=== PATIENT | male | born 1930 | race Caucasian/White ===

== ENCOUNTER 2016-06-29 07:33 | Day surgery (SDC) | payer MEDICARE, BC ==
--- NOTE | ~2016-06-29 | OP ---
Record Of Operation [facility] [address] [place]. 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 PROCEDURE PERFORMED: 1. Wide local excision of right neck squamous cell carcinoma. 2. Complex layered closure of 8 cm x 4 cm defect. SURGEON: Linda Mathias M.D. [employer] SERVICE CAPTAIN: Víctor Polanco M.D. ANESTHESIA: General. COMPLICATIONS: None. CONDITION: Stable to recovery. INDICATIONS: An 86-year-old male with squamous cell carcinoma of the right neck with perineural spread noted, 3.1 mm depth of invasion, poor differentiation. The risks, benefits, and alternatives to wide excision with complex closure were explained and he agreed. PROCEDURE IN DETAIL: The patient was identified in preoperative holding, taken back to the operating room, and placed supine on the operating room table. General anesthesia was established. A time-out was called. The patient and procedure were confirmed. The biopsy site of the right neck still had three sutures in it. A 1 cm to 1.5 cm margin was marked around this with a surgical ink pen and infiltrated subcutaneously with 1% lidocaine with 1:100,000 epinephrine. Using a needle tip cautery on 15 CUT 25 COAG, lesion was excised down through the platysma as the deep margin. The specimen was tagged at 12 o'clock and sent for frozen section analysis. Margins were clear. A Burow's triangle was removed from the 3 o'clock and 9 o'clock position. The platysma undermined and the wound was 8 cm in length x 4 cm in width, and it was closed in layers using 3-0 Vicryl suture for the platysma with a running locking 5-0 Prolene for the skin followed by Steri-Strips. The patient was awakened and taken to recovery in stable condition. There were no complications. PH/MODL Linda Mathias M.D. Record Of Operation [facility] [address] [place] [address] NAME: DUY WESTBROOK : 28 STATUS : [facility] PAT#: [id number] AGE: 86 ADM/REG DATE : 06/29/16 MR#: [id number] REPORT SERV DATE: 06/29/16 DICTATED BY: LINDA MATHIAS DATE: 06/29/16 REPORT STATUS : Draft TRANSCRIBED BY: MODL DATE: 06/29/16 / [id number] CC: Becca Mix M.D.
[~2016-06-29 07:33] MED LIST: ALEVE220 MG PO; ALIGN4 MG PO; AREDS; ASAB PO; B12250T PO; IND25 PO; PEP20 PO; PRAVAC PO; PRESERVISION VIT; TYLENOL ARTH650 MG PO; TYLENOL PM PO; VITAMIN D1000 UNI1 PO; ZANTAC150 MG PO; [UNRECOGNIZED DRUG - OTHER] PO
[2016-06-29 08:14] LABS: HEMATOCRIT 44.9 % (40.0-51.0)
[2016-06-29 08:22] LABS: PARTIAL THROMBO TIME 33.8 SEC (22.5-37.2)
[2016-10-20] MEDS ORDERED: CYANO1000T PO (16:29)
[2016-10-20] MEDS ORDERED: FERROUS SULF325 M1 PO (16:30)
== END 2016-06-29 13:32 | disposition home or self-care (01) ==
LOC: SDC 07:33
PROVIDERS: Specialist
PROC: 0HB4XZZ Excision of Neck Skin, External Approach (ICD-10-PCS; principal; 2016-06-29 09:30)
DX: C44.42 Squamous cell carcinoma of skin of scalp and neck (principal); M10.9 Gout, unspecified; E78.00 Pure hypercholesterolemia, unspecified; M19.90 Unspecified osteoarthritis, unspecified site; K21.9 Gastro-esophageal reflux disease without esophagitis; Z87.442 Personal history of urinary calculi; Z85.828 Personal history of other malignant neoplasm of skin
CPT/HCPCS: 85014; 85018; 85730; 88305; 88331; 88342; 93005; J0690; J2405; J3010